=== PATIENT | female | born 1985 | race Caucasian/White ===

== ENCOUNTER 2024-07-01 04:02 | Emergency (ER) | payer OTHER ==
[~2024-07-01] VITALS: Ht 160 cm; Wt 72.7 kg
[2024-07-01 04:37] VITALS: BP 116/79; PULSE 84; RESP 18; TEMP 97.7; O2SAT 99
== END 2024-07-01 05:14 | disposition home or self-care (01) ==
LOC: EMS 04:04
DX: Z04.3 Encounter for examination and observation following other accident (principal); Z65.3 Problems related to other legal circumstances; Z98.890 Other specified postprocedural states; V89.2XXA Person injured in unspecified motor-vehicle accident, traffic, initial encounter; Y93.89 Activity, other specified; Y92.410 Unspecified street and highway as the place of occurrence of the external cause; Y99.8 Other external cause status
CPT/HCPCS: 99281; Z7502